=== PATIENT | male | born 2000 | race Caucasian/White ===

== ENCOUNTER 2020-11-19 02:24 | Emergency (ER) | payer OTHER ==
[~2020-11-19] VITALS: Ht 180.3 cm; Wt 75.0 kg
[2020-11-19] MEDS ORDERED: ONDANSETRON ODT 4 MG ONE (02:38)
--- NOTE | 2020-11-19 02:45 | NUR ---
pt bib [facility], found sitting in alley between . pt had be out partying with friends, admits to drinking and some marijuana. pt vomitted as soon as he got on our gurney. pt resting on gurney, placed on continuous monitoring.
[2020-11-19] MEDS ORDERED: ONDANSETRON ODT 4 MG PO ONE (03:00)
--- NOTE | 2020-11-19 03:00 | NUR ---
pt to [place], denies needs at this time
--- NOTE | 2020-11-19 04:00 | NUR ---
pt resting on gurney, denies needs at this time.
--- NOTE | 2020-11-19 05:00 | NUR ---
pt resting on gurney, denies needs at this time.
--- NOTE | 2020-11-19 06:09 | NUR ---
pt resting on gurney, denies needs at this time.
--- NOTE | 2020-11-19 07:13 | NUR ---
REPORT FROM KENIA RN, PT RESTING ON [place]. NO NEEDS AT THIS TIME.
--- NOTE | 2020-11-19 08:57 | NUR ---
REPORT TO ERICK BOYER
--- NOTE | 2020-11-19 09:02 | NUR ---
REPORT FROM LINA BOYER.
[2020-11-19 09:11] VITALS: BP 116/76
--- NOTE | 2020-11-19 09:12 | NUR ---
PT RESTING IN BED, VSS, GIVEN WATER AND CEREAL, FALL PRECS.
--- NOTE | 2020-11-19 09:45 | NUR ---
[facility]: [phone]
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
--- NOTE | 2020-11-19 09:48 | NUR ---
BELONGINGS: 1 BAG 1 PHONE 1 PANTS 1 LONG SLEEVE 1 UNDERWEAR 1 PAIR SOCKS 1 BELT.
[2020-11-19 10:20] LABS: BASOPHILS % (AUTO) 0 % (0-1); EOSINOPHILS % (AUTO) 1 % (1-7); LYMPHOCYTES % (AUTO) 19 % (22-44); MEAN CORPUSCULAR HEMOGLOBIN 29.9 pg (27.5-34.5); MEAN CORPUSCULAR HGB CONC 34.9 g/dL (33.2-36.2); MEAN PLATELET VOLUME 8.3 fL (7.4-10.4); MONOCYTES % (AUTO) 4 % (2-9); NEUTROPHILS % (AUTO) 76 % (42-75); PLATELET COUNT 192 x10^3/uL (130-400); RED BLOOD COUNT 5.17 x10^6/uL (4.38-5.82); RED CELL DISTRIBUTION WIDTH 13.7 % (9.4-14.8)
[2020-11-19 10:29] LABS: ALANINE AMINOTRANSFERASE 21 U/L (12-78); ALBUMIN 3.8 g/dL (3.4-5.0); ANION GAP 4 mmol/L (5-15); CALCIUM 8.3 mg/dL (8.5-10.1); CHLORIDE 107 mmol/L (98-107)
[2020-11-19 10:32] LABS: ALKALINE PHOSPHATASE 80 U/L (45-117); BILIRUBIN,TOTAL 0.6 mg/dL (0.2-1.0); CREATININE 0.83 mg/dL (0.7-1.3); SALICYLATE LEVEL < 1.7 mg/dL (2.8-20.0); TOTAL PROTEIN 7.1 g/dL (6.4-8.2)
--- NOTE | 2020-11-19 11:09 | NUR ---
PSYCH PROVIDER SHAYY NOTIFIED OF SITUATION.
--- NOTE | 2020-11-19 12:26 | NUR ---
maite gutierrez was in room. pt will be legal hold. sitter requested. as
--- NOTE | 2020-11-19 14:00 | NUR ---
mother at bedside. all belongings given to mom. constanza estrada was in room. sitter at [facility]. as
--- NOTE | 2020-11-19 14:45 | NUR ---
pt sleeping in bed. sitter at door.
--- NOTE | 2020-11-19 15:05 | NUR ---
report to eva pratt. as
--- NOTE | 2020-11-19 15:18 | NUR ---
REPORT RECIEVED FROM LINSEY RN, PT NOW LEGAL HOLD. PT AMBULATD TO BR WITH STEADY GAIT. DOA COLLECTED AND SENT TO LAB. NO NEED AT THIS TIME.
[2020-11-19 15:36] LABS: AMPHETAMINE SCREEN, URINE Negative (Negative); BARBITURATE SCREEN, URINE Negative (Negative); BENZODIAZEPINE SCREEN, URINE Negative (Negative); CANNABINOID SCREEN, URINE Positive (Negative); COCAINE SCREEN, URINE Negative (Negative); METHADONE SCREEN, URINE Negative (Negative); OPIATE SCREEN, URINE Negative (Negative)
[2020-11-19] MEDS ORDERED: HYDROXYZINE PAMOATE 50MG CAP PO PRN (16:00)
[2020-11-19] MEDS ORDERED: hydrOXyzine 50MG TABLET ONE (16:33)
--- NOTE | 2020-11-19 17:00 | NUR ---
U CALLED TO SAY THEY WILL ACCEPT PT. PT WILL GO TO ROOM 381-2 FOR MANJIT
--- NOTE | 2020-11-19 17:22 | NUR ---
PT MEDICATED PER MAR FOR ANXIETY. REPORT GIVEN TO RECEIVING RN.
[2020-11-19] MEDS ORDERED: ARIPIPRAZOLE 10 MG TABLET PO SCH (21:00)
[2020-11-19] MEDS ORDERED: TRAZODONE 50MG TABLET PO PRN (21:00)
[2020-11-20] MEDS ORDERED: RISP2TAB80 PO (11:19)
[2020-11-20] MEDS ORDERED: TRAZ50TA66 PO (11:19)
[2020-11-20] MEDS ORDERED: ARIP15TA3 PO (11:19)
== END 2020-11-19 17:48 ==
LOC: ED 04:19 → EDIP 04:21 → UNDOADMOB 04:21 → ED 17:42
DX: F10.129 Alcohol abuse with intoxication, unspecified (principal); F12.129 Cannabis abuse with intoxication, unspecified; Z20.822 Contact with and (suspected) exposure to COVID-19; R51.9 Headache, unspecified; Y90.0 Blood alcohol level of less than 20 mg/100 ml
CPT/HCPCS: 36415; 70450; 72125; 80053; 80299; 80307; 80320; 85025; 87426; 99285; Q0162; 80329; G0480